=== PATIENT | female | born 1950 | race Two or more races ===

== ENCOUNTER 2020-07-16 14:42 | Emergency (ER) | payer MEDICARE ==
[~2020-07-16] VITALS: Ht 165.1 cm; Wt 94.2 kg
[2020-07-16 14:54] VITALS: BP_DIAS 81
[2020-07-16] MEDS ORDERED: LISI-600 PO (15:52)
[2020-07-16] MEDS ORDERED: METF500T PO ×2 (15:52→16:48)
[2020-07-16] MEDS ORDERED: GABA-534 PO ×2 (15:52→16:48)
[2020-07-16] MEDS ORDERED: metFORMIN 500mg tablet PO ONE (16:40)
[2020-07-16] MEDS ORDERED: lisinopril 10 MG tablet PO ONE (16:40)
[2020-07-16] MEDS ORDERED: gabapentin 400mg capsule PO SCH (16:45)
[2020-07-16] MEDS ORDERED: LISI10TA4 PO (16:48)
[2020-07-16] MEDS ORDERED: gabapentin 400mg capsule PO ONE (16:50)
[2020-07-16 16:56] VITALS: BP_SYST 143
== END 2020-07-16 17:24 | disposition home or self-care (01) ==
LOC: ER 14:43
DX: E11.42 Type 2 diabetes mellitus with diabetic polyneuropathy (principal); I10 Essential (primary) hypertension; M19.90 Unspecified osteoarthritis, unspecified site; F17.200 Nicotine dependence, unspecified, uncomplicated; Z98.890 Other specified postprocedural states; Z79.899 Other long term (current) drug therapy
CPT/HCPCS: 82948; 99284